=== PATIENT | male | born 1940 | race Caucasian/White ===

== ENCOUNTER 2017-07-28 10:55 | Inpatient (IN) | payer MEDICARE ==
[2017-07-28] MEDS ORDERED: Iohexol 240 (50 ml) PO STA (11:44)
--- NOTE | 2017-07-28 12:06 | ED PDOC ---
HPI: Abdomen Time Seen by Provider: 07/28/17 11:29 Chief Complaint (Nursing): Abdominal Pain Chief Complaint (Provider): Abdominal farley History Per: Patient History/Exam Limitations: no limitations Onset/Duration Of Symptoms: Days (1) Associated Symptoms: denies: Fever, Chills, Nausea, Vomiting, Diarrhea, Constipation Additional Complaint(s): Patient is a 76 y/o male with a past medical history of hypertension and appendectomy presenting to the emergency department for diffuse, non-radiating mid-abdominal pain and cramps that started last night. Reports that he had trouble sleeping due to the intense pain. Notes that this morning he went to his [facility] PCP who advised him to go to the ED for further evaluation. Denies taking medication for the pain, fever, chills, nausea, vomiting, diarrhea, constipation, and drug use. PCP: [facility] Past Medical History Reviewed: Historical Data, Nursing Documentation, Vital Signs Vital Signs: Last Vital Signs Temp 98.3 F 07/28/17 11:28 Pulse 89 07/28/17 11:28 Resp 18 07/28/17 11:28 BP 162/104 H 07/28/17 11:28 Pulse Ox 100 07/28/17 14:25 - Medical History PMH: HTN - Surgical History Surgical History: Appendectomy - Family History Family History: States: No Known Family Hx - Living Arrangements Living Arrangements: Alone - Social History Current smoker - smoking cessation education provided: No Ex-Smoker (has not smoked in the last 12 months): No Alcohol: Social Drugs: Denies - Allergies Allergies/Adverse Reactions: Allergies Allergy/AdvReac Type Severity Reaction Status Date / Time No Known Allergies Allergy Verified 07/28/17 11:28 Review of Systems ROS Statement: Except As Marked, All Systems Reviewed And Found Negative Constitutional: Negative for: Fever, Chills Gastrointestinal: Positive for: Abdominal Pain (diffuse, non-radiating, cramping ). Negative for: Nausea, Vomiting, Diarrhea, Constipation Genitourinary Male: Negative for: Dysuria, Frequency, Hematuria Physical Exam - Reviewed Nursing Documentation Reviewed: Yes Vital Signs Reviewed: Yes - Physical Exam Appears: Positive for: Non-toxic, No Acute Distress, Uncomfortable (in mild discomfort) Head Exam: Positive for: ATRAUMATIC, NORMAL INSPECTION, NORMOCEPHALIC Skin: Positive for: Normal Color, Warm, Dry Eye Exam: Positive for: EOMI, Normal appearance, PERRL ENT: Positive for: Normal ENT Inspection, Other (moist, mucous membranes) Neck: Positive for: Normal, Painless ROM, Supple Cardiovascular/Chest: Positive for: Regular Rate, Rhythm. Negative for: Murmur Respiratory: Positive for: Normal Breath Sounds. Negative for: Accessory Muscle Use, Respiratory Distress Gastrointestinal/Abdominal: Positive for: Bowel Sounds (all four quadrants), Tenderness (mild and diffuse on palpation. Moderate to severe tenderness to the right upper quadrant.), Distended (mild, diffuse) Back: Negative for: L CVA Tenderness, R CVA Tenderness Extremity: Positive for: Normal ROM. Negative for: Pedal Edema, Swelling Neurologic/Psych: Positive for: Alert, Oriented (x3) - Laboratory Results Result Diagrams: 07/28/17 12:20 07/28/17 12:20 - ECG O2 Sat by Pulse Oximetry: 100 (RA) Pulse Ox Interpretation: Normal Medical Decision Making Medical Decision Making: Time: 11:42 Initial Impression: Abdominal pain, cholecystitis, small bowel obstruction, diverticulitis Initial plan: CT Abdomen and Pelvis PO and IV Contrast EKG Labs Pepcid 20 mg IVP Omnipaque 50 ml PO Zofran 4 mg IVP IV Insertion Urinalysis Reevaluation 13:55 Abominal ultrasound reviewed and findings noted as follows: LIVER: Measures 16.9 cm. There is mild increased echogenicity in the liver with coarse heterogeneous echotexture. No mass. No intrahepatic bile duct dilatation. GALLBLADDER: The gallbladder is distended and there are multiple gallstones. There is sludge within the gallbladder. There is diffuse gallbladder wall thickening. The sonographic Melendez sign is positive. COMMON BILE DUCT: Measures 4.2 mm. No stones. No dilatation. PANCREAS: Unremarkable as visualized. No mass. No ductal dilatation. RIGHT KIDNEY: Measures 9.0cm. There is diffuse increased echogenicity and diffuse cortical thinning. No calculus, mass, or hydronephrosis. There is a 10 mm cyst in the upper pole with eccentric calcification. LEFT KIDNEY: Measures 10.5cm. There is diffuse increased echogenicity and diffuse cortical thinning. No calculus, mass, or hydronephrosis. SPLEEN: Normal in size and contour. No mass. AORTA: No aneurysmal dilatation. IVC: Unremarkable. OTHER FINDINGS: None. IMPRESSION: 1. Findings are concerning for acute calculus cholecystitis. 2. Medical renal disease. 3. Hepatic steatosis and coarse heterogeneous echotexture of the liver. Scribe Attestation: Documented by Taylor Mcgowan, acting as a scribe for Brianda Pond MD. Provider Scribe Attestation: All medical record entries made by the Scribe were at my direction and personally dictated by me. I have reviewed the chart and agree that the record accurately reflects my personal performance of the history, physical exam, medical decision making, and the department course for this patient. I have also personally directed, reviewed, and agree with the discharge instructions and disposition. case dw Dr. Holman at 2:20p - case reviewed. agrees with tomas. asked for surgery resident to see patient for evaluation. case dw patient. Will admit. Disposition - Clinical Impression Clinical Impression: Acute cholecystitis - Patient ED Disposition Is Patient to be Admitted: Yes Doctor Will See Patient In The: Hospital - Disposition Disposition: Transfer of Care Disposition Time: 14:17 Condition: GUARDED Forms: [employer] ([place]an) - Pt Status Changed To: Hospital Disposition Of: Inpatient - Admit Certification Admit to Inpatient:: After my assessment, the patient will require hospitalization for at least two midnights. This is because of the severity of symptoms shown, intensity of services needed, and/or the medical risk in this patient being treated as an outpatient. - POA Present On Arrival: None
[2017-07-28] MEDS ORDERED: Iohexol 240 (50 ml) ONE (12:22)
[2017-07-28 12:29] LABS: BASO # 0.1 K/uL (0.0-0.2); BASO % 0.4 % (0.0-2.0); HEMATOCRIT 43.5 % (35.0-51.0); LYMPH # 0.7 K/uL (1.0-4.3); LYMPH % 5.2 % (20.0-40.0); MEAN CORPUSCULAR HEMOGLOBIN 29.9 pg (27.0-31.0); MEAN CORPUSCULAR HGB CONC 32.5 g/dL (33.0-37.0); MEAN PLATELET VOLUME 8.2 fl (7.2-11.7); MONO # 0.8 K/uL (0.0-0.8); MONO % 6.2 % (0.0-10.0); NEUT # 12.1 K/uL (1.8-7.0); NEUT % 88.2 % (50.0-75.0); PLATELET COUNT 237 K/uL (130-400); RED CELL DISTRIBUTION WIDTH 14.2 % (11.5-14.5); WHITE BLOOD COUNT 13.7 K/uL (4.8-10.8)
[2017-07-28 12:37] LABS: RBC URINE 9 /hpf (0-3); URINE BILIRUBIN NEGATIVE (NEGATIVE); URINE BLOOD MODERATE (NEGATIVE); URINE COLOR STRAW (YELLOW); URINE GLUCOSE (UA) NEG (Normal); URINE KETONE NEGATIVE (NEGATIVE); URINE LEUKOCYTE ESTERASE NEG Leu/uL (Negative); URINE PROTEIN 30 mg/dL (NEGATIVE); URINE UROBILINOGEN 0.2-1.0 mg/dL (0.2-1.0); WBC URINE 1 /hpf (0-5)
[2017-07-28 13:02] LABS: ALB/GLOB RATIO 1.3 (1.0-2.1); BILIRUBIN,TOTAL 0.8 mg/dl (0.2-1.3); CALCIUM 10.1 mg/dL (8.4-10.2); POTASSIUM 5.1 MMOL/L (3.6-5.0); TOTAL PROTEIN 7.7 G/DL (6.3-8.2)
[2017-07-28 13:44] LABS: BASOPHIL 1 % (0-2); LARGE PLATELETS PRESENT; NEUTROPHIL 84 % (42-75); TOTAL CELLS COUNTED 100
--- NOTE | 2017-07-28 13:57 | US ---
HISTORY: Diffuse abdominal pain and RUQ tenderness COMPARISON: None. TECHNIQUE: Grayscale imaging was performed. FINDINGS: LIVER: Measures 16.9 cm. There is mild increased echogenicity in the liver with coarse heterogeneous echotexture. No mass. No intrahepatic bile duct dilatation. GALLBLADDER: The gallbladder is distended and there are multiple gallstones. There is sludge within the gallbladder. There is diffuse gallbladder wall thickening. The sonographic Melendez sign is positive. COMMON BILE DUCT: Measures 4.2 mm. No stones. No dilatation. PANCREAS: Unremarkable as visualized. No mass. No ductal dilatation. RIGHT KIDNEY: Measures 9.0cm. There is diffuse increased echogenicity and diffuse cortical thinning. No calculus, mass, or hydronephrosis. There is a 10 mm cyst in the upper pole with eccentric calcification. LEFT KIDNEY: Measures 10.5cm. There is diffuse increased echogenicity and diffuse cortical thinning. No calculus, mass, or hydronephrosis. SPLEEN: Normal in size and contour. No mass. AORTA: No aneurysmal dilatation. IVC: Unremarkable. OTHER FINDINGS: None. IMPRESSION: 1. Findings are concerning for acute calculus cholecystitis. 2. Medical renal disease. 3. Hepatic steatosis and coarse heterogeneous echotexture of the liver.
[2017-07-28] MEDS ORDERED: Piperacillin/Tazobact 3.375 GM in Sodium Chloride 0.9% 100 ML IVPB STA (14:18)
[2017-07-28] MEDS ORDERED: Sodium Chloride 0.9% 1,000 ML IV STA (14:30)
[2017-07-28] MEDS ORDERED: Piperacillin/Tazobact 3.375 gm Inj IVPB ONE (14:37)
[2017-07-28 15:12] LABS: PARTIAL THROMBOPLASTIN TIME 29.9 Seconds (25.6-37.1)
--- NOTE | 2017-07-28 16:55 | CP.PCM.CON ---
History of Present Illness - History of Present Illness History of Present Illness: 76 y.o. male comes to the hospital c/o abdominal pain since last night. Patient states that he had some beans and mozzarella cheese for dinner yesterday and about an hour later he stated to have abdominal pain. Denies any fever or chills, no vomiting, but reported some nausea. Describes pain as diffuse. Passing flatus and had a normal bowel movement yesterday. Denies any urinary symptoms, no sick contacts at home. Of note patient had similar symptoms about 1 week ago that went away without any medical intervention. No other complains at present time. Review of Systems - Constitutional Constitutional: As Per HPI - EENT Eyes: Other (unremarkable) Ears: Other (unremarkable) Nose/Mouth/Throat: Other (unremarkable) - Cardiovascular Cardiovascular: Other (unremarkable) - Respiratory Respiratory: Other (unremarkable) - Gastrointestinal Gastrointestinal: As Per HPI - Genitourinary Genitourinary: As Per HPI - Reproductive: Male Reproductive:Male: Other (unremarkable) - Musculoskeletal Musculoskeletal: Other (unremarkable) - Integumentary Integumentary: Other (unremarkable) - Neurological Neurological: Other (unremarkable) - Psychiatric Psychiatric: Other (unremarkable) - Endocrine Endocrine: Other (unremarkable) - Hematologic/Lymphatic Hematologic: Other (unremarkable) Past Patient History - Past Social History Alcohol: Social Drugs: Denies - CARDIAC Hx Hypertension: Yes - MUSCULOSKELETAL/RHEUMATOLOGICAL Hx Spinal Stenosis: Yes - PSYCHIATRIC Hx Substance Use: No - SURGICAL HISTORY Hx Appendectomy: Yes - ANESTHESIA Hx Anesthesia: Yes Hx Anesthesia Reactions: No Meds Allergies/Adverse Reactions: Allergies Allergy/AdvReac Type Severity Reaction Status Date / Time No Known Allergies Allergy Verified 07/28/17 11:28 - Medications Medications: Current Medications Sodium Chloride (Sodium Chloride 0.9%) 1,000 mls @ 125 mls/hr IV .Q8H STA Stop: 07/28/17 22:29 Last Admin: 07/28/17 14:39 Dose: 125 mls/hr Physical Exam - Constitutional Appears: Well, Non-toxic, No Acute Distress - Head Exam Head Exam: ATRAUMATIC, NORMAL INSPECTION, NORMOCEPHALIC - Eye Exam Eye Exam: EOMI, Normal appearance, PERRL Pupil Exam: NORMAL ACCOMODATION, PERRL - ENT Exam ENT Exam: Mucous Membranes Moist, Normal Exam - Neck Exam Neck exam: Positive for: Full Rom, Normal Inspection - Respiratory Exam Respiratory Exam: Clear to Auscultation Bilateral, NORMAL BREATHING PATTERN - Cardiovascular Exam Cardiovascular Exam: REGULAR RHYTHM, +S1, +S2 - GI/Abdominal Exam GI & Abdominal Exam: Normal Bowel Sounds, Soft Additional comments: Tender in RUQ, mildly distended, BS+, no rebound, no guarding, well healed scar from prior surgery - Rectal Exam Rectal Exam: Deferred - Extremities Exam Extremities exam: Positive for: full ROM, normal inspection - Back Exam Back exam: NORMAL INSPECTION - Neurological Exam Neurological exam: Alert, CN II-XII Intact, Oriented x3 - Psychiatric Exam Psychiatric exam: Normal Affect, Normal Mood - Skin Skin Exam: Dry, Intact, Normal Color, Warm Results - Vital Signs Recent Vital Signs: Last Vital Signs Temp 98.3 F 07/28/17 11:28 Pulse 89 07/28/17 11:28 Resp 18 07/28/17 11:28 BP 162/104 H 07/28/17 11:28 Pulse Ox 100 07/28/17 14:30 - Labs Result Diagrams: 07/28/17 12:20 07/28/17 12:20 Labs: Laboratory Results - last 24 hr 07/28/17 14:33 PT 11.0 INR 1.1 APTT 29.9 - Imaging and Cardiology US - abdomen Status: Image reviewed by me, Report reviewed by me Assessment & Plan - Assessment and Plan (Free Text) Assessment: 76 y.o. male with acute cholecystitis on the ultrasound Plan: - Keep NPO - IV fluids - Follow up CT scan results - Zosyn - Pain control - Zofran prn - If no other pathology on the CT scan will require cholecystectomy - Will follow
--- NOTE | 2017-07-28 17:02 | CT ---
PROCEDURE: CT Abdomen and Pelvis with contrast HISTORY: Abdominal pain, diffuse and RUQ COMPARISON: None. TECHNIQUE: CT scan of the abdomen and pelvis was performed without intravenous contrast. Oral contrast was administered. Coronal and sagittal reformatted images were obtained. Radiation dose: Total exam DLP = 943.81 mGy-cm. This CT exam was performed using one or more of the following dose reduction techniques: Automated exposure control, adjustment of the mA and/or kV according to patient size, and/or use of iterative reconstruction technique. FINDINGS: LOWER THORAX: There is minimal atelectasis in the lung bases. LIVER: The liver is normal in size. No gross lesion or ductal dilatation. GALLBLADDER AND BILE DUCTS: The gallbladder is distended, there are multiple gallstones, gallbladder wall thickening and pericholecystic edema and inflammatory changes PANCREAS: The pancreas is normal in size. No gross lesion or ductal dilatation. SPLEEN: The spleen is normal in size. A tiny low-attenuation lesion in the body of the spleen is too small to characterize by CT criteria and may represent a tiny cyst. ADRENALS: Both adrenal glands are normal in size without discrete nodule. KIDNEYS AND URETERS: There is cortical atrophy in both kidneys. There is no hydronephrosis or nephrolithiasis. There are nonspecific perinephric inflammatory changes. VASCULATURE: There are early atherosclerotic aortoiliac calcifications. No aortic aneurysm. BOWEL: The small bowel loops are normal in caliber. There is mild sigmoid diverticulosis without CT evidence for acute diverticulitis. There is large amount of stool in the ascending and transverse colon. No bowel dilatation or obstruction. APPENDIX: Not visualized, no inflammatory changes in the right lower quadrant. PERITONEUM: No free fluid. No free air. LYMPH NODES: No enlarged lymph nodes. BLADDER: There is mild mural thickening in the urinary bladder wall. REPRODUCTIVE: There is severe enlargement of the prostate gland which displaces the urinary bladder superiorly and anteriorly. BONES: No acute fracture. Diffuse bone demineralization and multilevel degenerative changes. OTHER FINDINGS: None. IMPRESSION: 1. Findings are concerning for acute calculus cholecystitis. 2. Severe enlargement of the prostate gland which displaces the urinary bladder anterosuperiorly. Please correlate clinically and with PSA levels. 3. Apparent mild mural thickening of the urinary bladder wall is nonspecific and could be related to underdistention however cystitis cannot be excluded. 4. Sigmoid diverticulosis without CT evidence for acute diverticulitis. Important findings were discussed with Dr. Pond in the ER on 07/28/2017 at 5 p.m.
[2017-07-28] MEDS: Piperacillin/Tazobact 3.375 GM in Sodium Chloride 0.9% 100 ML IVPB SCH (21:54)
[2017-07-29] MEDS: Sodium Chloride 0.9% 1,000 ML IV SCH ×2 (03:17→15:57)
[2017-07-29] MEDS: Piperacillin/Tazobact 3.375 GM in Sodium Chloride 0.9% 100 ML IVPB SCH ×4 (03:17→22:12)
[2017-07-29 07:16] LABS: BASO % 0.3 % (0.0-2.0); HEMATOCRIT 42.5 % (35.0-51.0); LYMPH # 0.8 K/uL (1.0-4.3); LYMPH % 5.8 % (20.0-40.0); MEAN CELL VOLUME 92.3 fl (80.0-94.0); MEAN CORPUSCULAR HEMOGLOBIN 30.3 pg (27.0-31.0); MEAN CORPUSCULAR HGB CONC 32.8 g/dL (33.0-37.0); MEAN PLATELET VOLUME 8.6 fl (7.2-11.7); MONO # 1.2 K/uL (0.0-0.8); MONO % 8.9 % (0.0-10.0); NEUT # 11.6 K/uL (1.8-7.0); NRBC % 0.1 % (0.0-0.0); RED CELL DISTRIBUTION WIDTH 14.1 % (11.5-14.5); WHITE BLOOD COUNT 13.6 K/uL (4.8-10.8)
[2017-07-29 07:32] LABS: ALB/GLOB RATIO 1.2 (1.0-2.1); BILIRUBIN,TOTAL 2.9 mg/dl (0.2-1.3); CALCIUM 9.3 mg/dL (8.4-10.2); POTASSIUM 4.7 MMOL/L (3.6-5.0)
--- NOTE | 2017-07-29 08:27 | CP.PCM.HP ---
History of Present Illness - History of Present Illness History of Present Illness: pt admitted for acute cholelithiasis/cholecystitis. pt is for or. ekg w/ rbbb and pt has h/o htn. no other med/surg history reported by pt. pt states pain was first noticed 1 wk ago w/ pain that lasted 5h in the rug, then yesterday pain came and did not charmaine. no f/c, n/v/d. Present on Admission - Present on Admission Any Indicators Present on Admission: No Review of Systems - Gastrointestinal Gastrointestinal: As Per HPI, Abdominal Pain, Nausea, Vomiting Past Patient History - Past Medical History & Family History Past Medical History?: Yes - Past Social History Smoking Status: Never Smoked - CARDIAC Hx Cardiac Disorders: Yes Hx Hypertension: Yes - PULMONARY Hx Respiratory Disorders: No - NEUROLOGICAL Other/Comment: tinnitus - HEENT Hx HEENT Problems: Yes - RENAL Hx Chronic Kidney Disease: No - ENDOCRINE/METABOLIC Hx Endocrine Disorders: No - HEMATOLOGICAL/ONCOLOGICAL Hx Blood Disorders: Yes Hx AIDS: No Hx Human Immunodeficiency Virus (HIV): No Hx Shingles: Yes - INTEGUMENTARY Hx Dermatological Problems: No - MUSCULOSKELETAL/RHEUMATOLOGICAL Hx Musculoskeletal Disorders: Yes Hx Falls: Yes Hx Osteoarthritis: Yes Hx Spinal Stenosis: Yes - GASTROINTESTINAL Hx Gastrointestinal Disorders: No Hx Constipation: Yes - GENITOURINARY/GYNECOLOGICAL Hx Genitourinary Disorders: No - PSYCHIATRIC Hx Psychophysiologic Disorder: No Hx Substance Use: No - SURGICAL HISTORY Hx Surgeries: Yes Hx Appendectomy: Yes - ANESTHESIA Hx Anesthesia: Yes Hx Anesthesia Reactions: No Hx Malignant Hyperthermia: No Has any member of the family had a problem w/ anesthesia?: No Meds Allergies/Adverse Reactions: Allergies Allergy/AdvReac Type Severity Reaction Status Date / Time No Known Allergies Allergy Verified 07/28/17 11:28 Physical Exam - Constitutional Appears: Well, Non-toxic, No Acute Distress - Head Exam Head Exam: ATRAUMATIC, NORMAL INSPECTION, NORMOCEPHALIC - Eye Exam Eye Exam: EOMI, Normal appearance, PERRL Pupil Exam: NORMAL ACCOMODATION, PERRL - ENT Exam ENT Exam: Mucous Membranes Moist, Normal Exam - Neck Exam Neck exam: Positive for: Normal Inspection - Respiratory Exam Respiratory Exam: Clear to Auscultation Bilateral, NORMAL BREATHING PATTERN - Cardiovascular Exam Cardiovascular Exam: REGULAR RHYTHM, RRR, +S1, +S2 - GI/Abdominal Exam GI & Abdominal Exam: Normal Bowel Sounds, Soft. absent: Tenderness - Extremities Exam Extremities exam: Positive for: full ROM, normal capillary refill, normal inspection, pedal pulses present - Back Exam Back exam: NORMAL INSPECTION - Neurological Exam Neurological exam: Alert, CN II-XII Intact, Normal Gait, Oriented x3, Reflexes Normal - Psychiatric Exam Psychiatric exam: Normal Affect, Normal Mood - Skin Skin Exam: Dry, Intact, Normal Color, Warm Results - Vital Signs Recent Vital Signs: Last Vital Signs Temp 98.2 F 07/29/17 07:25 Pulse 98 H 07/29/17 07:25 Resp 18 07/29/17 07:25 BP 155/94 H 07/29/17 07:25 Pulse Ox 97 07/29/17 07:25 - Labs Result Diagrams: 07/29/17 06:15 07/29/17 06:15 Labs: Laboratory Results - last 24 hr 07/28/17 07/29/17 07/29/17 14:33 06:15 06:15 WBC 13.6 H RBC 4.60 Hgb 13.9 Hct 42.5 MCV 92.3 MCH 30.3 MCHC 32.8 L RDW 14.1 Plt Count 218 MPV 8.6 Neut % (Auto) 85.0 H Lymph % (Auto) 5.8 L Dyer % (Auto) 8.9 Eos % (Auto) 0.0 Baso % (Auto) 0.3 Neut # 11.6 H Lymph # 0.8 L Dyer # 1.2 H Eos # 0.0 Baso # 0.0 PT 11.0 INR 1.1 APTT 29.9 Sodium 134 Potassium 4.7 Chloride 100 Carbon Dioxide 22 Anion Gap 17 BUN 22 H Creatinine 1.5 Est GFR ( Amer) 55 Est GFR (Non-Af Amer) 46 Random Glucose 125 H Calcium 9.3 Total Bilirubin 2.9 H AST 88 H D ALT 82 H D Alkaline Phosphatase 79 Total Protein 7.0 Albumin 3.9 Globulin 3.1 Albumin/Globulin Ratio 1.2 Assessment & Plan (1) DVT prophylaxis Assessment and Plan: scda nd ae hose ambulation Status: Acute (2) Acute cholecystitis Assessment and Plan: will clear for surgery today. cardio ekg noted. cxr pending zosyn, pain and nausea control Status: Acute Decision To Admit - Pt Status Changed To: Hospital Disposition Of: Inpatient - Admit Certification Admit to Inpatient:: After my assessment, the patient will require hospitalization for at least two midnights. This is because of the severity of symptoms shown, intensity of services needed, and/or the medical risk in this patient being treated as an outpatient. - . Bed Request Type: Med/Surg Admitting Physician: Ramiro Ruano
--- NOTE | 2017-07-29 09:32 | RAD ---
HISTORY: preop, cholecystitis COMPARISON: Chest radiographs 03/03/2014 TECHNIQUE: Chest PA and lateral FINDINGS: LUNGS: Inspiratory volume appears somewhat diminished, however, there is no acute infiltrate, pleural effusion, pneumothorax in or the significant interval change appreciated at this time. Trace linear atelectasis appears to overlie the right hemidiaphragm PLEURA: As above. CARDIOVASCULAR: Normal. OSSEOUS STRUCTURES: No significant abnormalities. VISUALIZED UPPER ABDOMEN: Normal. OTHER FINDINGS: None. IMPRESSION: Trace linear atelectasis overlies right hemidiaphragm. No acute infiltrate or pleural effusion identified.
--- NOTE | 2017-07-29 09:58 | CP.PCM.PN ---
<Rizwan Thomas - Last Filed: 07/29/17 09:46> Subjective - Date & Time of Evaluation Date of Evaluation: 07/29/17 Time of Evaluation: 09:47 - Subjective Subjective: Surgery Pt s&e. C/O abd pain . Will N/V/D overnight. Objective - Vital Signs/Intake and Output Vital Signs (last 24 hours): Temp Pulse Resp BP Pulse Ox 98.2 F 98 H 18 155/94 H 97 07/29/17 07:25 07/29/17 07:25 07/29/17 07:25 07/29/17 07:25 07/29/17 07:25 - Medications Medications: Current Medications Hydrochlorothiazide (Microzide) 12.5 mg PO DAILY [facility] Last Admin: 07/29/17 08:15 Dose: Not Given Hydromorphone HCl (Dilaudid) 1 mg IVP RQ4 PRN PRN Reason: Pain, severe (8-10) Piperacillin Sod/Tazobactam (Sod 3.375 gm/ Sodium Chloride) 100 mls @ 100 mls/ hr IVPB Q6 [facility] Last Admin: 07/29/17 09:19 Dose: 100 mls/hr Sodium Chloride (Sodium Chloride 0.9%) 1,000 mls @ 100 mls/hr IV .Q10H [facility] Stop: 07/29/17 17:10 Last Admin: 07/29/17 03:17 Dose: 100 mls/hr Lisinopril (Zestril) 10 mg PO 2100 [facility] Last Admin: 07/28/17 21:51 Dose: 10 mg Morphine Sulfate (Morphine) 4 mg IVP Q4 PRN PRN Reason: Pain, moderate (4-7) Last Admin: 07/29/17 03:26 Dose: 4 mg Ondansetron HCl (Zofran Inj) 4 mg IVP Q4 PRN PRN Reason: Nausea/Vomiting - Labs Labs: 07/29/17 06:15 07/29/17 06:15 PT 11.0 Seconds (9.8-13.1) 07/28/17 14:33 INR 1.1 (0.9-1.2) 07/28/17 14:33 APTT 29.9 Seconds (25.6-37.1) 07/28/17 14:33 - Constitutional Appears: No Acute Distress - Head Exam Head Exam: ATRAUMATIC, NORMAL INSPECTION, NORMOCEPHALIC - Eye Exam Eye Exam: EOMI, Normal appearance, PERRL Pupil Exam: NORMAL ACCOMODATION, PERRL - ENT Exam ENT Exam: Mucous Membranes Moist, Normal Exam - Neck Exam Neck Exam: Full ROM, Normal Inspection. absent: Lymphadenopathy - Respiratory Exam Respiratory Exam: Clear to Ausculation Bilateral, NORMAL BREATHING PATTERN - Cardiovascular Exam Cardiovascular Exam: REGULAR RHYTHM, +S1, +S2. absent: Murmur - GI/Abdominal Exam GI & Abdominal Exam: Distended, Soft, Tenderness, Normal Bowel Sounds. absent: Firm, Guarding, Rigid Additional comments: RUQ TTP <Jass Holman - Last Filed: 07/29/17 10:06> Subjective - Date & Time of Evaluation Time of Evaluation: 10:00 - Subjective Subjective: Patient was seen and examined at the bedside. Had increase in LFTs today. Objective - Vital Signs/Intake and Output Vital Signs (last 24 hours): Temp Pulse Resp BP Pulse Ox 98.2 F 98 H 18 155/94 H 97 07/29/17 07:25 07/29/17 07:25 07/29/17 07:25 07/29/17 07:25 07/29/17 07:25 - Medications Medications: Current Medications Hydrochlorothiazide (Microzide) 12.5 mg PO DAILY [facility] Last Admin: 07/29/17 08:15 Dose: Not Given Hydromorphone HCl (Dilaudid) 1 mg IVP RQ4 PRN PRN Reason: Pain, severe (8-10) Piperacillin Sod/Tazobactam (Sod 3.375 gm/ Sodium Chloride) 100 mls @ 100 mls/ hr IVPB Q6 [facility] Last Admin: 07/29/17 09:19 Dose: 100 mls/hr Sodium Chloride (Sodium Chloride 0.9%) 1,000 mls @ 100 mls/hr IV .Q10H [facility] Stop: 07/29/17 17:10 Last Admin: 07/29/17 03:17 Dose: 100 mls/hr Lisinopril (Zestril) 10 mg PO 2100 [facility] Last Admin: 07/28/17 21:51 Dose: 10 mg Morphine Sulfate (Morphine) 4 mg IVP Q4 PRN PRN Reason: Pain, moderate (4-7) Last Admin: 07/29/17 03:26 Dose: 4 mg Ondansetron HCl (Zofran Inj) 4 mg IVP Q4 PRN PRN Reason: Nausea/Vomiting - Labs Labs: 07/29/17 06:15 07/29/17 06:15 PT 11.0 Seconds (9.8-13.1) 07/28/17 14:33 INR 1.1 (0.9-1.2) 07/28/17 14:33 APTT 29.9 Seconds (25.6-37.1) 07/28/17 14:33 Assessment and Plan - Assessment and Plan (Free Text) Assessment: 76 y.o. male with cholecystitis now with elevated bilirubin Plan: - Keep NPO - IV fluids - Pain control - Zosyn IV - MRCP to r/o choledocholithiasis - Repeat labs in am - Will follow
--- NOTE | 2017-07-29 10:00 | CP.PCM.CON ---
History of Present Illness - History of Present Illness History of Present Illness: I was asked to evaluate patient by Moe Sinclair APN and Dr Ruano. Patient is a 76 year old male with a history of HTN who presents with abdominal pain. The patient felt 3 days of abdominal and RUQ pain. He was found to have acute cholecystitis. The patient needs cholecystectomy. He has no angina or heart failure. He denies previous cardiac history. Review of Systems - Constitutional Constitutional: absent: As Per HPI, Anorexia, Chills, Daytime Sleepiness, Excessive Sweating, Fatigue, Fever, Frequent Falls, Headache, Increased Appetite , Lethargy, Malaise, Night Sweats, Snoring, Sleep Apnea, Weight Gain, Weight Loss, Weakness, Other - EENT Eyes: absent: As Per HPI, Blind Spots, Blurred Vision, Change in Vision, Decreased Night Vision, Diplopia, Discharge, Dry Eye, Exophthalmos, Floaters, Irritation, Itchy Eyes, Loss of Peripheral Vision, Pain, Photophobia, Requires Corrective Lenses, Sees Flashes, Spots in Vision, Tunnel Vision, Other Visual Disturbances, Loss of Vision, Other Ears: absent: As Per HPI, Decreased Hearing, Ear Discharge, Ear Pain, Tinnitus, Abnormal Hearing, Disequilibrium, Dizziness, Other Nose/Mouth/Throat: absent: As Per HPI, Epistaxis, Nasal Congestion, Nasal Discharge, Nasal Obstruction, Nasal Trauma, Nose Pain, Post Nasal Drip, Sinus Pain, Sinus Pressure, Bleeding Gums, Change in Voice, Dental Pain, Dry Mouth, Dysphagia, Halitosis, Hoarsness, Lip Swelling, Mouth Lesions, Mouth Pain, Odynophagia, Sore Throat, Throat Swelling, Tongue Swelling, Facial Pain, Neck Pain, Neck Mass, Other - Cardiovascular Cardiovascular: absent: As Per HPI, Acrocyanosis, Chest Pain, Chest Pain at Rest , Chest Pain with Activity, Claudication, Diaphoresis, Dyspnea, Dyspnea on Exertion, Edema, Irregular Heart Rhythm, Pain Radiating to Arm/Neck/Jaw, Leg Edema, Leg Ulcers, Lightheadedness, Orthopnea, Palpitations, Paroxysmal Nocturnal Dyspnea, Pedal Edema, Radiating Pain, Rapid Heart Rate, Slow Heart Rate, Syncope, Other - Respiratory Respiratory: absent: As Per HPI, Cough, Dyspnea, Hemoptysis, Dyspnea on Exertion , Wheezing, Snoring, Stridor, Pain on Inspiration, Chest Congestion, Excessive Mucous Production, Change in Mucous Color, Pain with Coughing, Other - Gastrointestinal Gastrointestinal: Abdominal Pain - Genitourinary Genitourinary: absent: As Per HPI, Change in Urinary Stream, Difficulty Urinating, Dysuria, Flank Pain, Hematuria, Pyuria, Nocturia, Urinary Incontinence, Urinary Frequency, Urinary Hesitance, Urinary Urgency, Voiding Freq/Small Amts, Freq UTI, Hx Renal/Bladder Calculi, Hx /Renal Surgery, Bladder Distension, Other - Musculoskeletal Musculoskeletal: absent: As Per HPI, Abnormal Gait, Arthralgias, Atrophy, Back Pain, Deformity, Joint Swelling, Limited Range of Motion, Loss of Height, Muscle Cramps, Muscle Weakness, Myalgias, Neck Pain, Numbness, Radiating Pain into Limb, Stiffness, Tingling, Other - Integumentary Integumentary: absent: As Per HPI, Acne, Alopecia, Bleeding Lesions, Change in Hair, Change in Nails, Change in Pigmentation, Changing Lesions, Dry Skin, Erythema, Furuncle, Hirsutism, Lesions, New Lesions, Non-Healing Lesions, Photosensitivity, Pruritus, Rash, Skin Pain, Skin Ulcer, Sores, Striae, Swelling , Unusual Bruising, Wounds, Jaundice, Other - Neurological Neurological: absent: As Per HPI, Abnormal Gait, Abnormal Hearing, Abnormal Movements, Abnormal Speech, Behavioral Changes, Burning Sensations, Confusion, Convulsions, Disequilibrium, Dizziness, Numbness, Focal Weakness, Frequent Falls , Headaches, Lack of Coordination, Loss of Vision, Memory Loss, Paresthesias, Radicular Pain, Restless Legs, Sensory Deficit, Syncope, Tingling, Tremor, Vertigo, Weakness, Other Visual Disturbances, Other - Psychiatric Psychiatric: absent: As Per HPI, Abnormal Sleep Pattern, Anhedonia, Anxiety, Auditory Hallucinations, Behavioral Changes, Change in Appetite, Change in Libido, Confusion, Depression, Difficulty Concentrating, Hallucinations, Homicidal Ideation, Hopelessness, Irritability, Memory Loss, Mood Swings, Panic Attacks, Paranoia, Suicidal Ideation, Visual Hallucinations, Tactile Hallucinations, Other - Endocrine Endocrine: absent: As Per HPI, Change in Body Appearance, Change in Libido, Cold Intolorance, Deepening of Voice, Excessive Sweating, Fatigue, Flushing, Heat Intolorance, Increase in Ring/Shoe/Hat Size, Palpitations, Polydipsia, Polyphagia, Polyuria, Other - Hematologic/Lymphatic Hematologic: absent: As Per HPI, Easy Bleeding, Easy Bruising, Lymphadenopathy, Other Past Patient History - Past Medical History & Family History Past Medical History?: Yes - Past Social History Smoking Status: Never Smoked - CARDIAC Hx Cardiac Disorders: Yes Hx Hypertension: Yes - PULMONARY Hx Respiratory Disorders: No - NEUROLOGICAL Other/Comment: tinnitus - HEENT Hx HEENT Problems: Yes - RENAL Hx Chronic Kidney Disease: No - ENDOCRINE/METABOLIC Hx Endocrine Disorders: No - HEMATOLOGICAL/ONCOLOGICAL Hx Blood Disorders: Yes Hx AIDS: No Hx Human Immunodeficiency Virus (HIV): No Hx Shingles: Yes - INTEGUMENTARY Hx Dermatological Problems: No - MUSCULOSKELETAL/RHEUMATOLOGICAL Hx Musculoskeletal Disorders: Yes Hx Falls: Yes Hx Osteoarthritis: Yes Hx Spinal Stenosis: Yes - GASTROINTESTINAL Hx Gastrointestinal Disorders: No Hx Constipation: Yes - GENITOURINARY/GYNECOLOGICAL Hx Genitourinary Disorders: No - PSYCHIATRIC Hx Psychophysiologic Disorder: No Hx Substance Use: No - SURGICAL HISTORY Hx Surgeries: Yes Hx Appendectomy: Yes - ANESTHESIA Hx Anesthesia: Yes Hx Anesthesia Reactions: No Hx Malignant Hyperthermia: No Has any member of the family had a problem w/ anesthesia?: No Meds Allergies/Adverse Reactions: Allergies Allergy/AdvReac Type Severity Reaction Status Date / Time No Known Allergies Allergy Verified 07/28/17 11:28 - Medications Medications: Current Medications Hydrochlorothiazide (Microzide) 12.5 mg PO DAILY [facility] Last Admin: 07/29/17 08:15 Dose: Not Given Hydromorphone HCl (Dilaudid) 1 mg IVP RQ4 PRN PRN Reason: Pain, severe (8-10) Piperacillin Sod/Tazobactam (Sod 3.375 gm/ Sodium Chloride) 100 mls @ 100 mls/ hr IVPB Q6 [facility] Last Admin: 07/29/17 09:19 Dose: 100 mls/hr Sodium Chloride (Sodium Chloride 0.9%) 1,000 mls @ 100 mls/hr IV .Q10H [facility] Stop: 07/29/17 17:10 Last Admin: 07/29/17 03:17 Dose: 100 mls/hr Lisinopril (Zestril) 10 mg PO 2100 [facility] Last Admin: 07/28/17 21:51 Dose: 10 mg Morphine Sulfate (Morphine) 4 mg IVP Q4 PRN PRN Reason: Pain, moderate (4-7) Last Admin: 07/29/17 03:26 Dose: 4 mg Ondansetron HCl (Zofran Inj) 4 mg IVP Q4 PRN PRN Reason: Nausea/Vomiting Physical Exam - Constitutional Appears: Non-toxic - Head Exam Head Exam: NORMAL INSPECTION - Eye Exam Eye Exam: Normal appearance - ENT Exam ENT Exam: Mucous Membranes Moist - Neck Exam Neck exam: Positive for: Full Rom - Respiratory Exam Respiratory Exam: NORMAL BREATHING PATTERN - Cardiovascular Exam Cardiovascular Exam: REGULAR RHYTHM - GI/Abdominal Exam GI & Abdominal Exam: Normal Bowel Sounds - Rectal Exam Rectal Exam: Deferred - Extremities Exam Extremities exam: Negative for: pedal edema - Back Exam Back exam: NORMAL INSPECTION - Neurological Exam Neurological exam: Alert, Oriented x3 - Psychiatric Exam Psychiatric exam: Normal Affect - Skin Skin Exam: Normal Color Results - Vital Signs Recent Vital Signs: Last Vital Signs Temp 98.2 F 07/29/17 07:25 Pulse 98 H 07/29/17 07:25 Resp 18 07/29/17 07:25 BP 155/94 H 07/29/17 07:25 Pulse Ox 97 07/29/17 07:25 - Labs Result Diagrams: 07/29/17 06:15 07/29/17 06:15 Labs: Laboratory Results - last 24 hr 07/28/17 07/29/17 07/29/17 14:33 06:15 06:15 WBC 13.6 H RBC 4.60 Hgb 13.9 Hct 42.5 MCV 92.3 MCH 30.3 MCHC 32.8 L RDW 14.1 Plt Count 218 MPV 8.6 Neut % (Auto) 85.0 H Lymph % (Auto) 5.8 L [place] % (Auto) 8.9 Eos % (Auto) 0.0 Baso % (Auto) 0.3 Neut # 11.6 H Lymph # 0.8 L [place] # 1.2 H Eos # 0.0 Baso # 0.0 PT 11.0 INR 1.1 APTT 29.9 Sodium 134 Potassium 4.7 Chloride 100 Carbon Dioxide 22 Anion Gap 17 BUN 22 H Creatinine 1.5 Est GFR ( Amer) 55 Est GFR (Non-Af Amer) 46 Random Glucose 125 H Calcium 9.3 Total Bilirubin 2.9 H AST 88 H D ALT 82 H D Alkaline Phosphatase 79 Total Protein 7.0 Albumin 3.9 Globulin 3.1 Albumin/Globulin Ratio 1.2 - EKG Data EKG shows normal: Sinus rhythm Assessment & Plan - Assessment and Plan (Free Text) Assessment: preoperative cardiovascular examination. patient is stable for surgery. no current cardiovascular symptoms. will manage blood pressure post op. - Date & Time Date: 07/29/17 Time: 10:00
--- NOTE | 2017-07-29 10:57 | CARD ---
APPROVED REPORT EKG Measurement Heart [id number] <Conclusion> Normal sinus rhythm Right bundle branch block Abnormal ECG
--- NOTE | 2017-07-29 16:44 | MRI ---
PROCEDURE: Magnetic Resonance Cholangiopancreatography HISTORY: Elevated total bilirubin. COMPARISON: None available. TECHNIQUE: Multiplanar, multisequence MR images of the abdomen were obtained, including heavily T2 weighted MRCP images of the biliary system. Rotating maximum intensity projection images of the biliary system were generated. FINDINGS: MRCP: The common bile duct is of a normal caliber. No evidence of choledocholithiasis. No intrahepatic biliary ductal dilatation. LIVER: Unremarkable. GALLBLADDER: The gallbladder is mildly distended contains multiple gallstones. There is diffuse gallbladder wall thickening. There is also pericholecystic fluid. Findings are again concerning for acute cholecystitis. SPLEEN: Unremarkable. PANCREAS: Unremarkable. ADRENALS: Unremarkable. KIDNEYS: Heterogeneous signal in the renal cortex with small foci of cortical thinning noted. There is a small cyst at the midpole right kidney measures 1.3 centimeter. There is also exophytic cyst from the right kidney measures 1.3 centimeter. No evidence of hydronephrosis or hydroureter. AORTA: No aneurysm. ASCITES: There is trace amount of ascites in the upper abdomen. OTHER FINDINGS: None. IMPRESSION: Findings are again concerning for calculus cholecystitis. Normal caliber and shape of the CBD. No evidence of biliary obstruction or choledocholithiasis. Trace free fluid at the right upper abdomen.
[2017-07-30 01:19] VITALS: RESP 20
[2017-07-30] MEDS: Sodium Chloride 0.9% 1,000 ML IV SCH ×3 (02:48→14:12)
[2017-07-30] MEDS: Piperacillin/Tazobact 3.375 GM in Sodium Chloride 0.9% 100 ML IVPB SCH ×2 (03:35→09:47)
--- NOTE | 2017-07-30 07:13 | CP.PCM.PN ---
Subjective - Date & Time of Evaluation Date of Evaluation: 07/30/17 Time of Evaluation: 07:12 - Subjective Subjective: doing well, still w/ ruq pain. no f/c,n/v/d. mrcp and cardio clearnce noted. for surgery today-lap duran Objective - Vital Signs/Intake and Output Vital Signs (last 24 hours): Temp Pulse Resp BP Pulse Ox 98.2 F 97 H 20 119/78 98 07/30/17 01:19 07/30/17 01:19 07/30/17 01:19 07/30/17 01:19 07/30/17 01:19 - Medications Medications: Current Medications Hydrochlorothiazide (Microzide) 12.5 mg PO DAILY [facility] Last Admin: 07/29/17 08:15 Dose: Not Given Hydromorphone HCl (Dilaudid) 1 mg IVP RQ4 PRN PRN Reason: Pain, severe (8-10) Piperacillin Sod/Tazobactam (Sod 3.375 gm/ Sodium Chloride) 100 mls @ 100 mls/ hr IVPB Q6 [facility] Last Admin: 07/30/17 03:35 Dose: 100 mls/hr Sodium Chloride (Sodium Chloride 0.9%) 1,000 mls @ 120 mls/hr IV .Q8H20M [facility] Stop: 07/31/17 02:12 Last Admin: 07/30/17 03:36 Dose: 120 mls/hr Lisinopril (Zestril) 10 mg PO 2100 [facility] Last Admin: 07/29/17 21:34 Dose: 10 mg Morphine Sulfate (Morphine) 4 mg IVP Q4 PRN PRN Reason: Pain, moderate (4-7) Last Admin: 07/30/17 00:07 Dose: 4 mg Ondansetron HCl (Zofran Inj) 4 mg IVP Q4 PRN PRN Reason: Nausea/Vomiting - Labs Labs: 07/29/17 06:15 07/29/17 06:15 PT 11.0 Seconds (9.8-13.1) 07/28/17 14:33 INR 1.1 (0.9-1.2) 07/28/17 14:33 APTT 29.9 Seconds (25.6-37.1) 07/28/17 14:33 - Constitutional Appears: Well, Non-toxic, No Acute Distress - Head Exam Head Exam: ATRAUMATIC, NORMAL INSPECTION, NORMOCEPHALIC - Eye Exam Eye Exam: EOMI, Normal appearance, PERRL Pupil Exam: NORMAL ACCOMODATION, PERRL - ENT Exam ENT Exam: Mucous Membranes Moist, Normal Exam - Neck Exam Neck Exam: Full ROM, Normal Inspection. absent: Lymphadenopathy - Respiratory Exam Respiratory Exam: Clear to Ausculation Bilateral, NORMAL BREATHING PATTERN - Cardiovascular Exam Cardiovascular Exam: REGULAR RHYTHM, RRR, +S1, +S2. absent: Murmur - GI/Abdominal Exam GI & Abdominal Exam: Soft, Tenderness, Normal Bowel Sounds Additional comments: ruq tenderness - Extremities Exam Extremities Exam: Full ROM, Normal Capillary Refill, Normal Inspection. absent : Joint Swelling, Pedal Edema - Back Exam Back Exam: NORMAL INSPECTION - Neurological Exam Neurological Exam: Alert, Awake, CN II-XII Intact, Normal Gait, Oriented x3 - Psychiatric Exam Psychiatric exam: Normal Affect, Normal Mood - Skin Skin Exam: Dry, Intact, Normal Color, Warm Assessment and Plan (1) DVT prophylaxis Status: Acute (2) Acute cholecystitis Status: Acute - Assessment and Plan (Free Text) Assessment: (1) DVT prophylaxis Assessment and Plan: scda nd ae hose ambulation lovenox postop Status: Acute (2) Acute cholecystitis Assessment and Plan: will clear for surgery today. cardio ekg noted. cxr pending zosyn, pain and nausea control med cleared mrcp noted
[2017-07-30 07:40] LABS: ALB/GLOB RATIO 1.1 (1.0-2.1); BASO # 0.1 K/uL (0.0-0.2); BASO % 0.5 % (0.0-2.0); BILIRUBIN,TOTAL 3.2 mg/dl (0.2-1.3); EOS % 0.1 % (0.0-4.0); HEMATOCRIT 39.9 % (35.0-51.0); LYMPH # 0.8 K/uL (1.0-4.3); LYMPH % 5.1 % (20.0-40.0); MEAN CELL VOLUME 91.8 fl (80.0-94.0); MEAN CORPUSCULAR HEMOGLOBIN 30.6 pg (27.0-31.0); MEAN CORPUSCULAR HGB CONC 33.3 g/dL (33.0-37.0); MEAN PLATELET VOLUME 8.7 fl (7.2-11.7); MONO # 1.3 K/uL (0.0-0.8); MONO % 8.8 % (0.0-10.0); NEUT # 13.1 K/uL (1.8-7.0); NEUT % 85.5 % (50.0-75.0); POTASSIUM 5.1 MMOL/L (3.6-5.0); RED CELL DISTRIBUTION WIDTH 14.3 % (11.5-14.5); TOTAL PROTEIN 6.7 G/DL (6.3-8.2); WHITE BLOOD COUNT 15.3 K/uL (4.8-10.8)
[2017-07-30 07:43] VITALS: BP 156/90; PULSE 106; TEMP 99.7; O2SAT 95
[2017-07-30] MEDS ORDERED: Sod Polystyrene Sulf 15 gm/60 ml Oral Susp PO ONE (13:43)
--- NOTE | 2017-07-30 15:27 | CP.PCM.DIS ---
Provider - Provider Date of Admission: 07/28/17 14:31 Attending physician: Ramiro Ruano MD Time Spent in preparation of Discharge (in minutes): 15 Diagnosis - Discharge Diagnosis (1) DVT prophylaxis Status: Acute (2) Acute cholecystitis Status: Acute Hospital Course - Lab Results Lab Results: Most Recent Lab Values WBC 15.3 K/uL (4.8-10.8) H 07/30/17 06:30 RBC 4.35 Mil/uL (4.40-5.90) L 07/30/17 06:30 Hgb 13.3 g/dL (12.0-18.0) 07/30/17 06:30 Hct 39.9 % (35.0-51.0) 07/30/17 06:30 MCV 91.8 fl (80.0-94.0) 07/30/17 06:30 MCH 30.6 pg (27.0-31.0) 07/30/17 06:30 MCHC 33.3 g/dL (33.0-37.0) 07/30/17 06:30 RDW 14.3 % (11.5-14.5) 07/30/17 06:30 Plt Count 194 K/uL (130-400) 07/30/17 06:30 MPV 8.7 fl (7.2-11.7) 07/30/17 06:30 Neut % (Auto) 85.5 % (50.0-75.0) H 07/30/17 06:30 Lymph % (Auto) 5.1 % (20.0-40.0) L 07/30/17 06:30 [place] % (Auto) 8.8 % (0.0-10.0) 07/30/17 06:30 Eos % (Auto) 0.1 % (0.0-4.0) 07/30/17 06:30 Baso % (Auto) 0.5 % (0.0-2.0) 07/30/17 06:30 Neut # 13.1 K/uL (1.8-7.0) H 07/30/17 06:30 Lymph # 0.8 K/uL (1.0-4.3) L 07/30/17 06:30 [place] # 1.3 K/uL (0.0-0.8) H 07/30/17 06:30 Eos # 0.0 K/uL (0.0-0.7) 07/30/17 06:30 Baso # 0.1 K/uL (0.0-0.2) 07/30/17 06:30 Neutrophils % (Manual) 84 % (42-75) H 07/28/17 12:20 Band Neutrophils % 2 % (0-2) 07/28/17 12:20 Lymphocytes % (Manual) 7 % (20-50) L 07/28/17 12:20 Monocytes % (Manual) 6 % (0-10) 07/28/17 12:20 Basophils % (Manual) 1 % (0-2) 07/28/17 12:20 Platelet Estimate Normal (NORMAL) 07/28/17 12:20 Large Platelets Present 07/28/17 12:20 Poikilocytosis (manual Slight 07/28/17 12:20 Anisocytosis (manual) Slight 07/28/17 12:20 PT 11.0 Seconds (9.8-13.1) 07/28/17 14:33 INR 1.1 (0.9-1.2) 07/28/17 14:33 APTT 29.9 Seconds (25.6-37.1) 07/28/17 14:33 Sodium 137 mmol/l (132-148) 07/30/17 06:30 Potassium 5.1 MMOL/L (3.6-5.0) H 07/30/17 06:30 Chloride 103 mmol/L (98-107) 07/30/17 06:30 Carbon Dioxide 23 mmol/L (22-30) 07/30/17 06:30 Anion Gap 16 (10-20) 07/30/17 06:30 BUN 22 mg/dl (9-20) H 07/30/17 06:30 Creatinine 1.8 mg/dL (0.8-1.5) H 07/30/17 06:30 Est GFR ( Amer) 45 07/30/17 06:30 Est GFR (Non-Af Amer) 37 07/30/17 06:30 Random Glucose 78 mg/dL (75-110) 07/30/17 06:30 Calcium 9.0 mg/dL (8.4-10.2) 07/30/17 06:30 Total Bilirubin 3.2 mg/dl (0.2-1.3) H 07/30/17 06:30 AST 43 U/L (17-59) 07/30/17 06:30 ALT 53 U/L (21-72) 07/30/17 06:30 Alkaline Phosphatase 93 U/L (38-126) 07/30/17 06:30 Total Protein 6.7 G/DL (6.3-8.2) 07/30/17 06:30 Albumin 3.5 g/dL (3.5-5.0) 07/30/17 06:30 Globulin 3.3 gm/dL (2.2-3.9) 07/30/17 06:30 Albumin/Globulin Ratio 1.1 (1.0-2.1) 07/30/17 06:30 Lipase 81 U/L (23-300) 07/28/17 12:20 Urine Color Straw (YELLOW) 07/28/17 12:20 Urine Clarity Clear (Clear) 07/28/17 12:20 Urine pH 6.0 (5.0-8.0) 07/28/17 12:20 Ur Specific [place] 1.013 (1.003-1.030) 07/28/17 12:20 Urine Protein 30 mg/dL (NEGATIVE) 07/28/17 12:20 Urine Glucose (UA) Neg mg/dL (Normal) 07/28/17 12:20 Urine Ketones Negative mg/dL (NEGATIVE) 07/28/17 12:20 Urine Blood Moderate (NEGATIVE) 07/28/17 12:20 Urine Nitrate Negative (NEGATIVE) 07/28/17 12:20 Urine Bilirubin Negative (NEGATIVE) 07/28/17 12:20 Urine Urobilinogen 0.2-1.0 mg/dL (0.2-1.0) 07/28/17 12:20 Ur Leukocyte Esterase Neg [place]/uL (Negative) 07/28/17 12:20 Urine RBC (Auto) 9 /hpf (0-3) H 07/28/17 12:20 Urine Microscopic WBC 1 /hpf (0-5) 07/28/17 12:20 Discharge Exam - Head Exam Head Exam: ATRAUMATIC, NORMAL INSPECTION, NORMOCEPHALIC Discharge Plan - Follow Up Plan Condition: GUARDED Disposition: AGAINST MEDICAL ADVICE Instructions: Cholecystitis (DC) Additional Instructions: pt and family upset as there will be no surgery today. they wish to be signed ama despite dr camacho-surgery, coming to d/c reasons why the surgery was postponed. 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
--- NOTE | 2017-07-31 01:31 | PN ---
DATE: 07/30/2017 SUBJECTIVE: Mr. Ugalde is awake, alert, oriented x3, minimal distress. He is lying in bed with son at bedside. He is obviously jaundiced, and I examined the patient with the nurse. The abdomen is soft, totally nontender. The bowel sounds are excellent, tolerating fluid. The bilirubin jumped up to 3 today with the rest of the LFTs being relatively normal. I discussed at length with the patient and the son that because of the elevations of the LFTs, anesthesia which is hepatotoxic would be at this point somewhat dangerous, so I told them we will watch if the bilirubin trends down, then we will contemplate a laparoscopic cholecystectomy. If it does not, we would contemplate a cholecystostomy tube and subsequent laparoscopic cholecystectomy. The patient and the son seems to understand and agreed. We will follow with you. Maciej Heart MD
--- NOTE | 2017-07-31 12:20 | CON ---
DATE: 07/30/2017 REASON FOR CONSULTATION: Elevated LFTs. HISTORY OF PRESENT ILLNESS: This is a very pleasant 76-year-old man comes in with abdominal pain and discomfort for the past 3 to 4 days, said he had epigastric pain radiating to right upper quadrant, history of cholecystitis. GI is called because at some point the LFTs started to climbing and evaluation was requested. The patient feels better, the pain is gone. He is currently lying in bed comfortably in no apparent distress. PAST MEDICAL HISTORY: As above. PAST SURGICAL HISTORY: As above. MEDICATIONS: Have been reviewed. REVIEW OF SYSTEMS: All other systems have been reviewed and negative apart from the HPI. PHYSICAL EXAMINATION: VITAL SIGNS: In the hospital grossly remarkable. GENERAL: Pleasant elderly appearing male, lying in bed comfortable, in no apparent distress. HEENT: Head is normocephalic and atraumatic. Eyes, pupils are equal, round, and reactive to light bilaterally. No conjunctival pallor or icterus. NECK: Supple. Normal range of motion. No lymphadenopathy appreciated. LUNGS: Coarse breath sounds bilaterally. HEART: S1 and S2. Regular rate and rhythm. No murmurs appreciated. ABDOMEN: Soft and nontender. Bowel sounds present. No rebound. No guarding. RECTAL: Deferred. EXTREMITIES: Pulses felt bilaterally. SKIN: Warm, dry and intact. NEUROLOGIC: A and O x3. LABORATORY DATA: Labs reviewed. WBC 16.3 which is up, hemoglobin is stable at 13.3. Potassium is 5.1. Delta-bilirubin is 2.2 and albumin 2.9. AST and ALT were down to normal 43 and 53. MRCP is negative for retained stones. ASSESSMENT: This is a 76-year-old man with cholecystitis and now elevation of LFTs. results secondary to medications and sepsis. From GI standpoint get a fraction of bili, hepatitis A, B and C and we will discuss with surgery about timing of cholecystectomy. Antibiotics for now. Thank you for the consult. Saeid Odonnell MD/ PhD cc: Dr. Sinclair
== END 2017-07-30 15:12 | disposition left against medical advice (07) | DRG 446 ==
LOC: H.ER 10:55 → H.ERHOLD 14:31 → H.MEDSURG1 17:29
PROVIDERS: ADMIT Family Medicine; ATTEND Family Medicine
DX: K81.0 Acute cholecystitis (principal); I45.10 Unspecified right bundle-branch block; I10 Essential (primary) hypertension; H93.19 Tinnitus, unspecified ear; Z90.49 Acquired absence of other specified parts of digestive tract; M19.90 Unspecified osteoarthritis, unspecified site; M48.00 Spinal stenosis, site unspecified; K59.00 Constipation, unspecified